=== PATIENT | male | born 1980 | race African-American/Black ===

== ENCOUNTER 2021-08-11 16:13 | Inpatient (IN) | payer SELFPAY ==
[~2021-08-11] VITALS: Ht 162.6 cm; Wt 60.2 kg
[2021-08-11] MEDS ORDERED: hydrALAZINE 20 MG/ML VIAL. IVP ONE ×2 (17:00→18:00)
--- NOTE | 2021-08-11 17:16 | RAD ---
Exam: CT head INDICATION: Headache TECHNIQUE: Sequential axial images through the head were obtained without the administration of IV co ntrast. Exposure: One or more of the following in the visualized dose reduction techniques were utilized for this examination: 1. Automated exposure control 2. Adjustment of the MA and/or KV according to patient size 3. Use of iterative of reconstructive technique Comparisons: None FINDINGS: No focal parenchymal lesion or hemorrhage is identified. There is no midline shift or sulcal effaceme nt. No acute vascular territory infarction is identified. Acosta-white distinction is preserved. The ventricular system is within normal limits without compression hydrocephalus. The basal cisterns are well maintained. The visualized portions of the paranasal sinuses and mastoid air cells are well-pneumatized. No acute fractures. IMPRESSION: No acute intracranial abnormality. Electronically signed by: Michelle Marie MD (08/11/2021 5:14 PM) RUSSELL
[2021-08-11 17:24] LABS: BASO % 1 % (0-3); EOS % 1 % (0-3); HEMATOCRIT 37.5 % (39.0-53.0); HEMOGLOBIN 11.6 g/dL (13.0-17.5); LYMPH # 0.9 x10^3/uL (1.0-4.8); LYMPH % 15 % (24-48); MEAN CORPUSCULAR HEMOGLOBIN 24 pg (25-35); MEAN CORPUSCULAR HGB CONC 31 g/dL (31-37); MEAN CORPUSCULAR VOLUME 77 fL (79-100); MONO # 0.4 x10^3/uL (0.0-1.1); MONO % 7 % (0-9); NEUT # 4.6 x10^3/uL (1.8-7.7); NEUT % 77 % (31-73); PLATELET COUNT 295 x10^3/uL (140-400); RED BLOOD COUNT 4.87 x10^6/uL (4.30-5.70); RED CELL DISTRIBUTION WIDTH 14.6 % (11.5-14.5)
--- NOTE | 2021-08-11 17:35 | PHYS DOC ---
Past Medical History Additional Past Medical Histor: CKD Past Surgical History: No Surgical History Smoking Status: Never Smoker Alcohol Use: Occasionally General Adult EDM: Chief Complaint: HEADACHE HPI: HPI: Patient is a 41 year old male who presents with headache and hypertension. Patient is also reporting some nausea. Patient states "I was told 15 years ago I need to be on blood pressure medicine I never started ". Patient denies chest pain, blurred vision, weakness. Denies taking anything to treat headache at home. Denies any daily medications or health history. Review of Systems: Review of Systems: Constitutional: Denies fever or chills. [] Eyes: Denies change in visual acuity. [] HENT: Denies nasal congestion or sore throat. [] Respiratory: Denies cough or shortness of breath. [] Cardiovascular: Denies chest pain or edema. [] GI: Denies abdominal pain, nausea, vomiting, bloody stools or diarrhea. [] : Denies dysuria. [] Musculoskeletal: Denies back pain or joint pain. [] Integument: Denies rash. [] Neurologic: Denies headache, focal weakness or sensory changes. [] Endocrine: Denies polyuria or polydipsia. [] Lymphatic: Denies swollen glands. [] Psychiatric: Denies depression or anxiety. [] Heart Score: C/O Chest Pain: No Risk Factors: Risk Factors: DM, Current or recent (<one month) smoker, HTN, HLP, family history of CAD, obesity. Risk Scores: Score 0 - 3: 2.5% MACE over next 6 weeks - Discharge Home Score 4 - 6: 20.3% MACE over next 6 weeks - Admit for Clinical Observation Score 7 - 10: 72.7% MACE over next 6 weeks - Early Invasive Strategies Current Medications: Current Medications Medications (Trade) Dose Ordered Sig/Carol Start Time Stop Time Status Last Admin Dose Admin Hydralazine HCl (Apresoline Inj) 10 mg 1X ONCE 08/11/21 17:00 08/11/21 17:01 DC 08/11/21 17:34 10 MG Allergies: Allergies: Allergies Coded Allergies Type Severity Reaction Last Updated Verified banana Allergy Intermediate 08/11/21 Yes Physical Exam: PE: Constitutional: Well developed, well nourished, no acute distress, non-toxic appearance. [] HENT: Normocephalic, atraumatic, bilateral external ears normal, oropharynx moist, no oral exudates, nose normal. [] Eyes: PERRLA, EOMI, conjunctiva normal, no discharge. [] Neck: Normal range of motion, no tenderness, supple, no stridor. [] Cardiovascular:Heart rate regular rhythm, no murmur [] Lungs & Thorax: Bilateral breath sounds clear to auscultation [] Abdomen: Bowel sounds normal, soft, no tenderness, no masses, no pulsatile masses. [] Skin: Warm, dry, no erythema, no rash. [] Back: No tenderness, no CVA tenderness. [] Extremities: No tenderness, no cyanosis, no clubbing, ROM intact, no edema. [] Neurologic: Alert and oriented X 3, normal motor function, normal sensory function, no focal deficits noted. [] Psychologic: Affect normal, judgement normal, mood normal. [] Current Patient Data: Labs: Laboratory Tests Test 08/11/21 17:07 White Blood Count 6.0 x10^3/uL (4.0-11.0) Red Blood Count 4.87 x10^6/uL (4.30-5.70) Hemoglobin 11.6 g/dL (13.0-17.5) L Hematocrit 37.5 % (39.0-53.0) L Mean Corpuscular Volume 77 fL (79-100) L Mean Corpuscular Hemoglobin 24 pg (25-35) L Mean Corpuscular Hemoglobin Concent 31 g/dL (31-37) Red Cell Distribution Width 14.6 % (11.5-14.5) H Platelet Count 295 x10^3/uL (140-400) Neutrophils (%) (Auto) 77 % (31-73) H Lymphocytes (%) (Auto) 15 % (24-48) L Monocytes (%) (Auto) 7 % (0-9) Eosinophils (%) (Auto) 1 % (0-3) Basophils (%) (Auto) 1 % (0-3) Neutrophils # (Auto) 4.6 x10^3/uL (1.8-7.7) Lymphocytes # (Auto) 0.9 x10^3/uL (1.0-4.8) L Monocytes # (Auto) 0.4 x10^3/uL (0.0-1.1) Eosinophils # (Auto) 0.0 x10^3/uL (0.0-0.7) Basophils # (Auto) 0.0 x10^3/uL (0.0-0.2) Laboratory Tests 08/11/21 17:07 Vital Signs: Vital Signs Date Time Temp Pulse Resp B/P (MAP) Pulse Ox O2 Delivery O2 Flow Rate FiO2 08/11/21 17:34 84 235/158 08/11/21 16:42 97.7 16 99 Room Air 97.7 EKG: EKG: [] Radiology/Procedures: Radiology/Procedures: []Exam: CT head INDICATION: Headache TECHNIQUE: Sequential axial images through the head were obtained without the administration of IV contrast. Exposure: One or more of the following in the visualized dose reduction techniques were utilized for this examination: 1. Automated exposure control 2. Adjustment of the MA and/or KV according to patient size 3. Use of iterative of reconstructive technique Comparisons: None FINDINGS: No focal parenchymal lesion or hemorrhage is identified. There is no midline shift or sulcal effacement. No acute vascular territory infarction is identified. Acosta-white distinction is preserved. The ventricular system is within normal limits without compression hydrocephalus. The basal cisterns are well maintained. The visualized portions of the paranasal sinuses and mastoid air cells are well- pneumatized. No acute fractures. IMPRESSION: No acute intracranial abnormality. Electronically signed by: Michelle Marie MD (08/11/2021 5:14 PM) [facility] Course & Med Decision Making: Course & Med Decision Making Pertinent Labs and Imaging studies reviewed. (See chart for details) [] 41-year-old male presents with headache and hypertension. Blood pressure on arrival was 235/158. Patient was given 10 of hydralazine to treat blood pressure. Toradol and Benadryl given to treat pain. Upon reassessment, blood pressure still elevated in the 200s. Patient given second dose of hydralazine which decreased blood pressure to 180s/100s. Patient is reporting nausea, which was treated in the ED. Patient's creatinine was 2.9. BNP 2760. Dragon Disclaimer: Dragjennifer Disclaimer: This electronic medical record was generated, in whole or in part, using a voice recognition dictation system. Departure Departure Impression: Primary Impression: Hypertensive emergency Disposition: 09 ADMITTED INPATIENT Admitting Physician: CHAPO Condition: STABLE Referrals: NO PCP (PCP) LAURA CHILDERS APRN Aug 11, 2021 17:35
[2021-08-11 18:02] LABS: CALCIUM 8.7 mg/dL (8.5-10.1); CREATININE 2.9 mg/dL (0.7-1.3); GFR 29.5; POTASSIUM 3.9 mmol/L (3.5-5.1)
[2021-08-11 18:07] LABS: ALBUMIN 3.4 g/dL (3.4-5.0); ALBUMIN/GLOBULIN RATIO 0.9 (1.0-1.7); TOTAL BILIRUBIN 0.3 mg/dL (0.2-1.0); TOTAL PROTEIN 7.1 g/dL (6.4-8.2)
[2021-08-11] MEDS ORDERED: ONDANSETRON PF 4 MG/2 ML VIAL. IVP ONE (18:15)
[2021-08-11] MEDS ORDERED: diphenhydrAMINE 50 MG/ML VIAL IVP ONE (18:15)
[2021-08-11] MEDS ORDERED: KETOROLAC 15 MG/ML VIAL. IVP ONE (18:15)
[2021-08-11] MEDS ORDERED: LABETALOL 20 MG/4 ML DISP.SYRIN. IVP ONE (18:30)
[2021-08-11] MEDS ORDERED: PROCHLORPERAZINE 10 MG/2 ML VIAL. IV ONE (19:00)
--- NOTE | 2021-08-11 19:02 | RAD ---
EXAM: CHEST 1 VIEW History: Headache COMPARISON: None available. TECHNIQUE: Single portable radiograph of the chest FINDINGS: Mild cardiomegaly. The lungs are clear bilaterally. The costophrenic sulci are clear and w ell demarcated. IMPRESSION: No radiographic evidence of an acute cardiopulmonary process. Electronically signed by: Andrzej Aguila MD (08/11/2021 7:00 PM) [id number]
[2021-08-11] MEDS ORDERED: LACTULOSE 20 GM/30 ML SOLUTION. PO PRN (19:45)
[2021-08-11] MEDS ORDERED: MAG HYDROX/ALUMINUM HYD/SIMETH 30 ML ORAL.SUSP PO PRN (19:45)
[2021-08-11] MEDS ORDERED: ONDANSETRON PF 4 MG/2 ML VIAL. IVP PRN (19:45)
[2021-08-11] MEDS ORDERED: CALCIUM CARBONATE 500 MG TAB.CHEW PO PRN (19:45)
[2021-08-11] MEDS ORDERED: ZOLPIDEM 5 MG TABLET. PO PRN (19:45)
[2021-08-11] MEDS ORDERED: HYDROcodone/APAP 5/325MG 1 TAB TABLET PO PRN (19:45)
[2021-08-11] MEDS ORDERED: MORPHINE SULFATE 2 MG/ML INJ. IV PRN (19:45)
[2021-08-11] MEDS ORDERED: ACETAMINOPHEN 325 MG TABLET. PO PRN (19:45)
[2021-08-11] MEDS ORDERED: BISACODYL 10 MG SUPP.RECT. PR PRN (19:45)
[2021-08-11] MEDS ORDERED: MAGNESIUM HYDROXIDE 2,400 MG/30 ML ORAL.SUSP. PO PRN (19:45)
[2021-08-11] MEDS ORDERED: oxyCODONE IR 5 MG TABLET PO PRN (19:45)
--- NOTE | 2021-08-11 20:53 | RAD ---
EXAM: RENAL ULTRASOUND CLINICAL HISTORY: Renal failure COMPARISON: None available. TECHNIQUE: Ultrasound examination of the bilateral kidneys and urinary bladder was performed. Findings/ impression: The right kidney is not visualized. The left kidney measures 13.5 x 4.3 cm unsure if this is [place] or transplant kidney. Patient is a poor historian. Urinary bladder is mildly distended. Electronically signed by: Andrzej Aguila MD (08/11/2021 8:51 PM) [id number]
[2021-08-11 21:30] VITALS: BP 146/87
[2021-08-11 21:45] VITALS: BP 158/92
[2021-08-11] MEDS: SENNOSIDES/DOCUSATE 8.6/50MG TABLET. PO SCH (22:12)
[2021-08-11] MEDS: HEPARIN for SUB-Q USE 5,000 UNIT/ML VIAL. SQ SCH (22:13)
[2021-08-11 23:00] VITALS: BP 159/96
--- NOTE | 2021-08-11 23:18 | PDOC1 ---
History and Physical Date of Admission Date of Admission 08/11/2021 Identification/Chief Complaint Chief Complaint My head hurcortes Source Source: Chart review, Patient History of Present Illness History of Present Illness Patient is a 41-year-old gentleman with past medical history of renal disease. He has been aware of renal issues for 14 years now. No diagnosis has been given to him but he will has also had essential hypertension uncontrolled for quite some time. Patient came today due to severe headache that he presented earlier in the day. He has not been taking any blood pressure medications and he was found to have hypertensive urgency. The patient denied any strokelike symptoms no chest pressure no loss of consciousness no slurred speech no focal neurological deficits were appreciated. Serendipitously the patient was tested for Covid and tested positive. The patient denies any sick contacts the patient has not taken the vaccine and is currently asymptomatic. He denies any chest di scomfort no cough sputum production no dyspnea. The patient denies abdominal discomfort no nausea vomiting or diarrhea. He den ies any urinary symptoms no lower extremity edema no paroxysmal nocturnal dyspnea and there is no evidence of volume overload at the present time. Patient is being admitted at the request of the ER for blood pressure management and evaluation of renal disease which seems to be chronic in nature. The patient denies any recent history of NSAID abuse no contrast no other nephrotoxic drugs reported and no herbal supplements either. No changes in his urinary output has been reported either. All of his concerns were addressed to the best of my abilities plan of care explained in detail Past Medical History Cardiovascular: HTN Renal/: Chronic renal insuff Past Surgical History Past Surgical History: No pertinent history Family History Family History: No Significant Social History Smoke: No ALCOHOL: none Drugs: None Current Problem List Problem List Problems Medical Problems: (1) Hypertensive emergency Status: Acute Current Medications Current Medications Current Medications Medications (Trade) Dose Ordered Sig/Carol Start Time Stop Time Status Last Admin Dose Admin Acetaminophen (Tylenol) 650 mg PRN Q6HRS PRN 08/11/21 19:45 Acetaminophen/ Hydrocodone Bitart (Lortab 5/325) 1 tab PRN Q4HRS PRN 08/11/21 19:45 Al Hydroxide/Mg Hydroxide (Mylanta Plus Xs) 30 ml PRN Q3HRS PRN 08/11/21 19:45 Bisacodyl (Dulcolax Supp) 10 mg PRN DAILY PRN 08/11/21 19:45 Calcium Carbonate/ Glycine (Tums) 500 mg PRN Q3HRS PRN 08/11/21 19:45 Diphenhydramine HCl (Benadryl) 50 mg 1X ONCE 08/11/21 18:15 08/11/21 18:21 DC 08/11/21 19:06 50 MG Heparin Sodium (Porcine) (Heparin Sodium) 5,000 unit Q8HRS 08/11/21 20:00 08/11/21 22:13 5,000 UNIT Hydralazine HCl (Apresoline Inj) 10 mg 1X ONCE 08/11/21 18:00 08/11/21 18:12 DC 08/11/21 18:04 10 MG Ketorolac Tromethamine (Toradol 15mg Vial) 15 mg 1X ONCE 08/11/21 18:15 08/11/21 18:21 DC 08/11/21 19:07 15 MG Labetalol HCl (Normodyne Iv Push) 20 mg 1X ONCE 08/11/21 18:30 08/11/21 18:31 DC Lactulose (Lactulose) 20 gm PRN Q12HR PRN 08/11/21 19:45 Magnesium Hydroxide (Milk Of Magnesia) 2,400 mg PRN Q12HR PRN 08/11/21 19:45 Morphine Sulfate (Morphine Sulfate) 2 mg PRN Q1HR PRN 08/11/21 19:45 Nicardipine HCl 50 mg/Sodium Chloride 250 ml @ 25 mls/hr CONT PRN 08/11/21 19:45 Ondansetron HCl (Zofran) 4 mg PRN Q6HRS PRN 08/11/21 19:45 Oxycodone HCl (Roxicodone) 5 mg PRN Q3HRS PRN 08/11/21 19:45 Prochlorperazine Edisylate (Compazine) 10 mg 1X ONCE 08/11/21 19:00 08/11/21 19:06 DC 08/11/21 19:10 10 MG Senna/Docusate Sodium (Senna Plus) 1 tab BID 08/11/21 21:00 08/11/21 22:12 1 TAB Zolpidem Tartrate (Ambien) 5 mg PRN QHS PRN 08/11/21 19:45 Allergies Allergies Allergies Coded Allergies Type Severity Reaction Last Updated Verified banana Allergy Intermediate 08/11/21 Yes ROS Review of System CONSTITUTIONAL: No fever or chills EYES: No recent changes SKIN: No rash or itching CARDIOVASCULAR: No chest pain, syncope, palpitations, or edema RESPIRATORY: No SOB or cough GASTROINTESTINAL: No nausea, vomiting or abdominal pain NEUROLOGICAL: No headaches or weakness ENDOCRINE: No cold or heat intolerance GENITOURINARY: No urgency or frequency of urination MUSCULOSKELETAL: No back pain or joint pain LYMPHATICS: No enlarged lymph nodes PSYCHIATRIC: No anxiety or depression Physical Exam Physical Exam GEN.: No apparent distress. Alert and oriented. HEENT: Head is normocephalic, atraumatic NECK: Supple. LUNGS: Clear to auscultation. HEART: RRR, S1, S2 present. Peripheral pulses intact ABDOMEN: Soft, nontender. Positive bowel sounds. EXTREMITIES: Without any cyanosis. NEUROLOGIC: Normal speech, normal tone PSYCHIATRIC: Normal affect, normal mood. SKIN: No ulcerations Vitals Vitals Vital Signs Date Time Temp Pulse Resp B/P (MAP) Pulse Ox O2 Delivery O2 Flow Rate FiO2 08/11/21 23:00 99.0 107 18 159/96 (117) 100 Room Air 99.0 Labs Labs Laboratory Tests Test 08/11/21 17:07 08/11/21 20:22 White Blood Count 6.0 x10^3/uL (4.0-11.0) Red Blood Count 4.87 x10^6/uL (4.30-5.70) Hemoglobin 11.6 g/dL (13.0-17.5) Hematocrit 37.5 % (39.0-53.0) Mean Corpuscular Volume 77 fL (79-100) Mean Corpuscular Hemoglobin 24 pg (25-35) Mean Corpuscular Hemoglobin Concent 31 g/dL (31-37) Red Cell Distribution Width 14.6 % (11.5-14.5) Platelet Count 295 x10^3/uL (140-400) Neutrophils (%) (Auto) 77 % (31-73) Lymphocytes (%) (Auto) 15 % (24-48) Monocytes (%) (Auto) 7 % (0-9) Eosinophils (%) (Auto) 1 % (0-3) Basophils (%) (Auto) 1 % (0-3) Neutrophils # (Auto) 4.6 x10^3/uL (1.8-7.7) Lymphocytes # (Auto) 0.9 x10^3/uL (1.0-4.8) Monocytes # (Auto) 0.4 x10^3/uL (0.0-1.1) Eosinophils # (Auto) 0.0 x10^3/uL (0.0-0.7) Basophils # (Auto) 0.0 x10^3/uL (0.0-0.2) Sodium Level 140 mmol/L (136-145) Potassium Level 3.9 mmol/L (3.5-5.1) Chloride Level 106 mmol/L (98-107) Carbon Dioxide Level 24 mmol/L (21-32) Anion Gap 10 (6-14) Blood Urea Nitrogen 25 mg/dL (8-26) Creatinine 2.9 mg/dL (0.7-1.3) Estimated GFR (Cockcroft-Gault) 29.5 BUN/Creatinine Ratio 9 (6-20) Glucose Level 89 mg/dL (70-99) Calcium Level 8.7 mg/dL (8.5-10.1) Total Bilirubin 0.3 mg/dL (0.2-1.0) Aspartate Amino Transf (AST/SGOT) 31 U/L (15-37) Alanine Aminotransferase (ALT/SGPT) 56 U/L (16-63) Alkaline Phosphatase 72 U/L (46-116) Troponin I High Sensitivity 60 ng/L (4-75) BF-Ape-M-Type Natriuretic Peptide 2760 pg/mL (0-124) Total Protein 7.1 g/dL (6.4-8.2) Albumin 3.4 g/dL (3.4-5.0) Albumin/Globulin Ratio 0.9 (1.0-1.7) SARS-CoV-2 Antigen (Rapid) Positive (NEGATIVE) Laboratory Tests Test 08/11/21 17:07 08/11/21 20:22 White Blood Count 6.0 x10^3/uL (4.0-11.0) Red Blood Count 4.87 x10^6/uL (4.30-5.70) Hemoglobin 11.6 g/dL (13.0-17.5) Hematocrit 37.5 % (39.0-53.0) Mean Corpuscular Volume 77 fL (79-100) Mean Corpuscular Hemoglobin 24 pg (25-35) Mean Corpuscular Hemoglobin Concent 31 g/dL (31-37) Red Cell Distribution Width 14.6 % (11.5-14.5) Platelet Count 295 x10^3/uL (140-400) Neutrophils (%) (Auto) 77 % (31-73) Lymphocytes (%) (Auto) 15 % (24-48) Monocytes (%) (Auto) 7 % (0-9) Eosinophils (%) (Auto) 1 % (0-3) Basophils (%) (Auto) 1 % (0-3) Neutrophils # (Auto) 4.6 x10^3/uL (1.8-7.7) Lymphocytes # (Auto) 0.9 x10^3/uL (1.0-4.8) Monocytes # (Auto) 0.4 x10^3/uL (0.0-1.1) Eosinophils # (Auto) 0.0 x10^3/uL (0.0-0.7) Basophils # (Auto) 0.0 x10^3/uL (0.0-0.2) Sodium Level 140 mmol/L (136-145) Potassium Level 3.9 mmol/L (3.5-5.1) Chloride Level 106 mmol/L (98-107) Carbon Dioxide Level 24 mmol/L (21-32) Anion Gap 10 (6-14) Blood Urea Nitrogen 25 mg/dL (8-26) Creatinine 2.9 mg/dL (0.7-1.3) Estimated GFR (Cockcroft-Gault) 29.5 BUN/Creatinine Ratio 9 (6-20) Glucose Level 89 mg/dL (70-99) Calcium Level 8.7 mg/dL (8.5-10.1) Total Bilirubin 0.3 mg/dL (0.2-1.0) Aspartate Amino Transf (AST/SGOT) 31 U/L (15-37) Alanine Aminotransferase (ALT/SGPT) 56 U/L (16-63) Alkaline Phosphatase 72 U/L (46-116) Troponin I High Sensitivity 60 ng/L (4-75) EE-Moq-B-Type Natriuretic Peptide 2760 pg/mL (0-124) Total Protein 7.1 g/dL (6.4-8.2) Albumin 3.4 g/dL (3.4-5.0) Albumin/Globulin Ratio 0.9 (1.0-1.7) SARS-CoV-2 Antigen (Rapid) Positive (NEGATIVE) VTE Prophylaxis Ordered VTE Prophylaxis Devices: Yes VTE Pharmacological Prophylaxi: Yes Assessment/Plan Assessment/Plan Hypertensive urgency COVID-19 positive status asymptomatic Chronic renal insufficiency most likely secondary to uncontrolled hypertension Microcytic anemia etiology undetermined. Patient denies black tarry stools no family history of colon cancer Plan Renal insufficiency work-up including ultrasound of the kidneys Cardene drip Follow urinary output Repeat labs in the a.m. Supportive measures for COVID-19 Isolation appropriately DVT prophylaxis with heparin Further recommendations based on the clinical course Justifications for Admission Other Justification Hypertensive urgency EZIO APPLE MD Aug 11, 2021 23:18
[2021-08-12] VITALS (10 sets, daily range): BP systolic 157–208; BP diastolic 94–125
[2021-08-12] MEDS: ASCORBIC ACID 500 MG TABLET PO SCH ×2 (00:36→05:53)
--- NOTE | 2021-08-12 01:01 | EKG ---
[facility] [address] [place] [address] Test Date: 2021-08-11 Test Time: 16:44:09 Pat Name: JENA BOWLING Department: Room: [facility] Gender: M Spa Manager/Esthetician: : 1980 Requested By: LAURA CHILDERS Order Number: [id number] Reading MD: Renny Kam MD Measurements Intervals [place] Rate: 76 P: 50 MS: 178 QRS: 47 QRSD: 82 T: 10 QT: 354 QTc: 402 Interpretive Statements SINUS RHYTHM Electronically Signed On 08-12-2021 13:47:09 NECKTIE STITCHER by Renny Kam MD
[2021-08-12 03:59] LABS: BASO % 1 % (0-3); EOS % 0 % (0-3); HEMATOCRIT 32.5 % (39.0-53.0); HEMOGLOBIN 10.2 g/dL (13.0-17.5); LYMPH # 1.2 x10^3/uL (1.0-4.8); LYMPH % 27 % (24-48); MEAN CORPUSCULAR HEMOGLOBIN 24 pg (25-35); MEAN CORPUSCULAR HGB CONC 32 g/dL (31-37); MEAN CORPUSCULAR VOLUME 77 fL (79-100); MONO # 0.5 x10^3/uL (0.0-1.1); MONO % 11 % (0-9); NEUT # 2.8 x10^3/uL (1.8-7.7); NEUT % 61 % (31-73); PLATELET COUNT 290 x10^3/uL (140-400); RED BLOOD COUNT 4.24 x10^6/uL (4.30-5.70); RED CELL DISTRIBUTION WIDTH 14.5 % (11.5-14.5); WHITE BLOOD COUNT 4.6 x10^3/uL (4.0-11.0)
[2021-08-12] MEDS: HEPARIN for SUB-Q USE 5,000 UNIT/ML VIAL. SQ SCH ×3 (05:53→22:18)
[2021-08-12] MEDS: SENNOSIDES/DOCUSATE 8.6/50MG TABLET. PO SCH ×3 (09:00→21:00)
[2021-08-12] MEDS: CHOLECALCIFEROL (VITAMIN D3) 1,000 UNIT TABLET PO SCH (09:03)
[2021-08-12] MEDS: ZINC SULFATE 220 MG CAPSULE. PO SCH (09:03)
[2021-08-12] MEDS: FAMOTIDINE 20 MG TABLET. PO SCH (09:04)
--- NOTE | 2021-08-12 12:51 | PDOC ---
[employer] PROGRESS NOTE Date of Service DOS: DATE: 08/12/21 TIME: 12:47 Chief Complaint Chief Complaint Hypertensive urgency COVID-19 positive status asymptomatic acute renal failure, [employer]IOR [employer]NAL [employer]PLANT, not taking his meds Chronic renal insufficiency, uncontrolled hypertension, not taking meds Microcytic anemia COVID 19 pos, vitals stable, on RA Follow urinary output Repeat labs in the a.m. Supportive measures for COVID-19 Isolation appropriately DVT prophylaxis with heparin Further recommendations based on the clinical course Justifications for Admission History of Present Illness History of Present Illness his headache is gone, he feels well he feels at his baseline I asked about renal function, he reports prior renal transplant, but is not taking his meds, he does recall the medicine name Cellcept, no recent physician visit Vitals/I&O Vitals/I&O: Vital Signs Date Time Temp Pulse Resp B/P (MAP) Pulse Ox O2 Delivery O2 Flow Rate FiO2 08/12/21 11:00 98.1 75 18 179/110 (133) 98 Room Air 98.1 I & O 08/11/21 08/11/21 08/12/21 15:00 23:00 07:00 Intake Total 200 ml Balance 200 ml Physical Exam General: Alert, Oriented X3, No acute distress Heart: Regular rate, Normal S1, Normal S2 Lungs: Wheezing Abdomen: Normal bowel sounds Extremities: No clubbing Skin: No rashes, No breakdown Labs Labs: Laboratory Tests Test 08/11/21 17:07 08/11/21 20:22 08/12/21 03:30 White Blood Count 6.0 x10^3/uL (4.0-11.0) 4.6 x10^3/uL (4.0-11.0) Red Blood Count 4.87 x10^6/uL (4.30-5.70) 4.24 x10^6/uL (4.30-5.70) Hemoglobin 11.6 g/dL (13.0-17.5) 10.2 g/dL (13.0-17.5) Hematocrit 37.5 % (39.0-53.0) 32.5 % (39.0-53.0) Mean Corpuscular Volume 77 fL (79-100) 77 fL (79-100) Mean Corpuscular Hemoglobin 24 pg (25-35) 24 pg (25-35) Mean Corpuscular Hemoglobin Concent 31 g/dL (31-37) 32 g/dL (31-37) Red Cell Distribution Width 14.6 % (11.5-14.5) 14.5 % (11.5-14.5) Platelet Count 295 x10^3/uL (140-400) 290 x10^3/uL (140-400) Neutrophils (%) (Auto) 77 % (31-73) 61 % (31-73) Lymphocytes (%) (Auto) 15 % (24-48) 27 % (24-48) Monocytes (%) (Auto) 7 % (0-9) 11 % (0-9) Eosinophils (%) (Auto) 1 % (0-3) 0 % (0-3) Basophils (%) (Auto) 1 % (0-3) 1 % (0-3) Neutrophils # (Auto) 4.6 x10^3/uL (1.8-7.7) 2.8 x10^3/uL (1.8-7.7) Lymphocytes # (Auto) 0.9 x10^3/uL (1.0-4.8) 1.2 x10^3/uL (1.0-4.8) Monocytes # (Auto) 0.4 x10^3/uL (0.0-1.1) 0.5 x10^3/uL (0.0-1.1) Eosinophils # (Auto) 0.0 x10^3/uL (0.0-0.7) 0.0 x10^3/uL (0.0-0.7) Basophils # (Auto) 0.0 x10^3/uL (0.0-0.2) 0.0 x10^3/uL (0.0-0.2) Sodium Level 140 mmol/L (136-145) Potassium Level 3.9 mmol/L (3.5-5.1) Chloride Level 106 mmol/L (98-107) Carbon Dioxide Level 24 mmol/L (21-32) Anion Gap 10 (6-14) Blood Urea Nitrogen 25 mg/dL (8-26) Creatinine 2.9 mg/dL (0.7-1.3) Estimated GFR (Cockcroft-Gault) 29.5 BUN/Creatinine Ratio 9 (6-20) Glucose Level 89 mg/dL (70-99) Calcium Level 8.7 mg/dL (8.5-10.1) Total Bilirubin 0.3 mg/dL (0.2-1.0) Aspartate Amino Transf (AST/SGOT) 31 U/L (15-37) Alanine Aminotransferase (ALT/SGPT) 56 U/L (16-63) Alkaline Phosphatase 72 U/L (46-116) Troponin I High Sensitivity 60 ng/L (4-75) IG-Mzv-G-Type Natriuretic Peptide 2760 pg/mL (0-124) Total Protein 7.1 g/dL (6.4-8.2) Albumin 3.4 g/dL (3.4-5.0) Albumin/Globulin Ratio 0.9 (1.0-1.7) SARS-CoV-2 Antigen (Rapid) Positive (NEGATIVE) Review of Systems Review of Systems: no n.v.d no fever, no headache Assessment and Plan Assessmemt and Plan Problems Medical Problems: (1) Hypertensive emergency Status: Acute Comment Review of Relevant I have reviewed the following items maddi (where applicable) has been applied. Medications: Current Medications Medications (Trade) Dose Ordered Sig/Carol Route PRN Reason Start Time Stop Time Status Last Admin Dose Admin Hydralazine HCl (Apresoline Inj) 10 mg 1X ONCE IVP 08/11/21 17:00 08/11/21 17:01 DC 08/11/21 17:34 Hydralazine HCl (Apresoline Inj) 10 mg 1X ONCE IVP 08/11/21 18:00 08/11/21 18:12 DC 08/11/21 18:04 Ondansetron HCl (Zofran) 4 mg 1X ONCE IVP 08/11/21 18:15 08/11/21 18:16 DC 08/11/21 18:12 Ketorolac Tromethamine (Toradol 15mg Vial) 15 mg 1X ONCE IVP 08/11/21 18:15 08/11/21 18:21 DC 08/11/21 19:07 Diphenhydramine HCl (Benadryl) 50 mg 1X ONCE IVP 08/11/21 18:15 08/11/21 18:21 DC 08/11/21 19:06 Prochlorperazine Edisylate (Compazine) 10 mg 1X ONCE IV 08/11/21 19:00 08/11/21 19:06 DC 08/11/21 19:10 Senna/Docusate Sodium (Senna Plus) 1 tab BID PO 08/11/21 21:00 08/12/21 09:03 Heparin Sodium (Porcine) (Heparin Sodium) 5,000 unit Q8HRS SQ 08/11/21 20:00 08/12/21 05:53 Ascorbic Acid (Vitamin C) 500 mg Q6HRS PO 08/12/21 00:00 08/12/21 05:53 Famotidine (Pepcid) 20 mg DAILY PO 08/12/21 09:00 08/12/21 09:04 Vitamin D (Vitamin D3) 2,000 unit DAILY PO 08/12/21 09:00 08/12/21 09:03 Zinc Sulfate (Orazinc) 220 mg DAILY PO 08/12/21 09:00 08/12/21 09:03 Justifications for Admission Other Justification Hypertensive urgency MARIOLA CURRAN MD Aug 12, 2021 12:51
[2021-08-12] MEDS ORDERED: METOPROLOL TART IMMED RELEASE 25 MG TABLET. PO SCH (13:00)
[2021-08-12] MEDS: hydrALAZINE 20 MG/ML VIAL. IVP PRN (17:32)
[2021-08-12] MEDS: METOPROLOL TART IMMED RELEASE 50 MG TABLET. PO SCH (22:17)
[2021-08-13 02:43] VITALS: BP 156/96
[2021-08-13] MEDS: HEPARIN for SUB-Q USE 5,000 UNIT/ML VIAL. SQ SCH ×3 (06:31→22:26)
[2021-08-13 07:00] VITALS: BP 175/105
[2021-08-13] MEDS: CHOLECALCIFEROL (VITAMIN D3) 1,000 UNIT TABLET PO SCH (08:34)
[2021-08-13] MEDS: SENNOSIDES/DOCUSATE 8.6/50MG TABLET. PO SCH ×2 (08:35→21:00)
[2021-08-13] MEDS: ZINC SULFATE 220 MG CAPSULE. PO SCH (08:35)
[2021-08-13] MEDS: METOPROLOL TART IMMED RELEASE 50 MG TABLET. PO SCH ×2 (08:36→22:24)
[2021-08-13] MEDS: FAMOTIDINE 20 MG TABLET. PO SCH (08:36)
[2021-08-13] MEDS: ASCORBIC ACID 500 MG TABLET PO SCH (08:37)
[2021-08-13 11:00] VITALS: BP 159/101
[2021-08-13 11:01] LABS: MAGNESIUM 1.8 mg/dL (1.8-2.4); PHOSPHORUS 6.2 mg/dL (2.6-4.7)
--- NOTE | 2021-08-13 11:26 | PDOC2 ---
CONSULT Date of Consult Date of Consult DATE: 08/13/21 TIME: 11:05 Reason for Consult Reason for Consult: LIBBY, Renal Transplant Source Source: Chart review, Patient History of Present Illness Reason for Visit: Patient is a 41-year-old AA male admitte mundo 08/11 with c/o severe headache that he presented earlier in the day. He reports he got a Kidney transplant from a donor when he was 25 years old. He has been off immunosuppression (his own decision) sine at least 13 years and not seen a provider for approx 12 + years He doesnt know the cause of Renal failure . He has not been taking any meds for past 12-14 years . He doesnt check his BP at home. Denies diagnosis of DM or CAD. Denies any N/V/D. No CP or SOB currently. Denies any urinary complaints .No neurological symptoms at presentation Denies Kidney stones. Denies use of NSAID's or OTC health supplements. Denies Illicit drug use He was found to have hypertensive urgency at presentation. He was tested for Covid and tested positive. He denies any sick contacts,he has not taken the vaccine Past Medical History Cardiovascular: HTN Renal/: Chronic renal insuff Past Surgical History Past Surgical History: No pertinent history Family History Family History: No Significant Social History No ALCOHOL: none Drugs: None Current Problem List Problem List Problems Medical Problems: (1) Hypertensive emergency Status: Acute Current Medications Current Medications Current Medications Hydralazine HCl (Apresoline Inj) 10 mg 1X ONCE IVP Last administered on 08/11/21at 17:34; Start 08/11/21 at 17:00; Stop 08/11/21 at 17:01; Status DC Hydralazine HCl (Apresoline Inj) 10 mg 1X ONCE IVP Last administered on 08/11/21at 18:04; Start 08/11/21 at 18:00; Stop 08/11/21 at 18:12; Status DC Ondansetron HCl (Zofran) 4 mg 1X ONCE IVP Last administered on 08/11/21at 18:12; Start 08/11/21 at 18:15; Stop 08/11/21 at 18:16; Status DC Ketorolac Tromethamine (Toradol 15mg Vial) 15 mg 1X ONCE IVP Last administered on 08/11/21at 19:07; Start 08/11/21 at 18:15; Stop 08/11/21 at 18:21; Status DC Diphenhydramine HCl (Benadryl) 50 mg 1X ONCE IVP Last administered on 08/11/21at 19:06; Start 08/11/21 at 18:15; Stop 08/11/21 at 18:21; Status DC Labetalol HCl (Normodyne Iv Push) 20 mg 1X ONCE IVP ; Start 08/11/21 at 18:30; Stop 08/11/21 at 18:31; Status DC Prochlorperazine Edisylate (Compazine) 10 mg 1X ONCE IV Last administered on 08/11/21at 19:10; Start 08/11/21 at 19:00; Stop 08/11/21 at 19:06; Status DC Nicardipine HCl 50 mg/Sodium Chloride 250 ml @ 25 mls/hr CONT PRN IV PER PROTOCOL; Start 08/11/21 at 19:45; Stop 08/12/21 at 12:50; Status DC Ondansetron HCl (Zofran) 4 mg PRN Q6HRS PRN IVP NAUSEA/VOMITING; Start 08/11/21 at 19:45 Al Hydroxide/Mg Hydroxide (Mylanta Plus Xs) 30 ml PRN Q3HRS PRN PO HEARTBURN / GAS; Start 08/11/21 at 19:45 Calcium Carbonate/ Glycine (Tums) 500 mg PRN Q3HRS PRN PO UPSET STOMACH; Start 08/11/21 at 19:45 Zolpidem Tartrate (Ambien) 5 mg PRN QHS PRN PO INSOMNIA, MAY REPEAT IN 1HR; Start 08/11/21 at 19:45 Oxycodone HCl (Roxicodone) 5 mg PRN Q3HRS PRN PO BREAKTHROUGH PAIN Last administered on 08/12/21at 22:20; Start 08/11/21 at 19:45 Morphine Sulfate (Morphine Sulfate) 2 mg PRN Q1HR PRN IV PAIN-SEE COMMENTS; Start 08/11/21 at 19:45 Acetaminophen/ Hydrocodone Bitart (Lortab 5/325) 1 tab PRN Q4HRS PRN PO MOD TO SEVERE PAIN Last administered on 08/12/21at 18:33; Start 08/11/21 at 19:45 Acetaminophen (Tylenol) 650 mg PRN Q6HRS PRN PO Headaches, Temp > 101.5F; Start 08/11/21 at 19:45 Senna/Docusate Sodium (Senna Plus) 1 tab BID PO Last administered on 08/13/21at 08:35; Start 08/11/21 at 21:00 Magnesium Hydroxide (Milk Of Magnesia) 2,400 mg PRN Q12HR PRN PO CONSTIPATION; Start 08/11/21 at 19:45 Lactulose (Lactulose) 20 gm PRN Q12HR PRN PO CONSTIPATION; Start 08/11/21 at 19:45 Bisacodyl (Dulcolax Supp) 10 mg PRN DAILY PRN [place] CONSTIPATION; Start 08/11/21 at 19:45 Heparin Sodium (Porcine) (Heparin Sodium) 5,000 unit Q8HRS SQ Last administered on 08/13/21at 06:31; Start 08/11/21 at 20:00 Ascorbic Acid (Vitamin C) 500 mg Q6HRS PO Last administered on 08/12/21at 05:53; Start 08/12/21 at 00:00; Stop 08/12/21 at 12:42; Status DC Famotidine (Pepcid) 20 mg DAILY PO Last administered on 08/13/21at 08:36; Start 08/12/21 at 09:00 Vitamin D (Vitamin D3) 2,000 unit DAILY PO Last administered on 08/13/21at 08:34; Start 08/12/21 at 09:00 Zinc Sulfate (Orazinc) 220 mg DAILY PO Last administered on 08/13/21at 08:35; Start 08/12/21 at 09:00 Ascorbic Acid (Vitamin C) 500 mg DAILY PO Last administered on 08/13/21at 08:37; Start 08/13/21 at 09:00 Amlodipine Besylate (Norvasc) 10 mg 1X ONCE PO Last administered on 08/12/21at 13:08; Start 08/12/21 at 13:00; Stop 08/12/21 at 13:01; Status DC Amlodipine Besylate (Norvasc) 10 mg DAILY PO Last administered on 08/13/21at 08:36; Start 08/13/21 at 09:00 Enoxaparin Sodium (Lovenox Per Pharmacy Prophylaxis Dosing) 1 each PRN DAILY PRN MC SEE COMMENTS; Start 08/12/21 at 13:00; Status UNV Metoprolol Tartrate (Lopressor) 25 mg BID PO Last administered on 08/12/21at 13:10; Start 08/12/21 at 13:00; Stop 08/12/21 at 17:17; Status DC Metoprolol Tartrate (Lopressor) 50 mg BID PO Last administered on 08/13/21at 08:36; Start 08/12/21 at 21:00 Hydralazine HCl (Apresoline Inj) 10 mg PRN Q4HRS PRN IVP ELEVATED BP, SEE COMMENTS Last administered on 08/12/21at 17:32; Start 08/12/21 at 17:15 Active Scripts Active Reported No Known Medications Prior To Admisstion (Info) Each 1 Each MC 1X Allergies Allergies: Coded Allergies: banana (Verified Allergy, Intermediate, 08/11/21) ROS Review of System As per HPI, rest of the ROS is negative Physical Exam Physical Exam GEN.: No apparent distress. Alert and oriented. HEENT: Head is normocephalic, atraumatic, OM moist NECK: Supple. LUNGS: Clear to auscultation. HEART: RRR, S1, S2 present. ABDOMEN: Soft, nontender. Positive bowel sounds. No Transplant tenderness EXTREMITIES: Without any cyanosis.No edema NEUROLOGIC: Normal speech, normal tone,Grossly normal PSYCHIATRIC: Normal affect, normal mood. SKIN: No rash No Flank or CVA tenderness, No Nelson Vital Signs Vital Signs Date Time Temp Pulse Resp B/P (MAP) Pulse Ox O2 Delivery O2 Flow Rate FiO2 08/13/21 08:36 74 156/96 08/13/21 07:00 98.3 16 94 Room Air 98.3 Assessment & Plan LIBBY Vs CKD- history of Renal Tx - have not been taking Immunosuppressive - quit 13 years back, dosent follow with health care provider Labs on 08/11 elevated, No labs done since ; Ordered labs today pending. Renal US The left kidney measures 13.5 x 4.3 cm unsure if this is [place] kidney or transplant kidney. E-lytes stable, Clinically stable. Monitor labs, strict I/O, avoid nephrotoxins, supportive care Hx of Renal Transplant- donor at the age of 25 years. 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 He quit taking immunosuppressives and havent seen a provider since 12-13 years CKD - Baseline unknown Hypertensive urgency- Primary managing , clinically appears euvolemic COVID-19 positive status asymptomatic Labs Labs Laboratory Tests Test 08/11/21 17:07 08/11/21 20:22 08/12/21 03:30 White Blood Count 6.0 x10^3/uL (4.0-11.0) 4.6 x10^3/uL (4.0-11.0) Red Blood Count 4.87 x10^6/uL (4.30-5.70) 4.24 x10^6/uL (4.30-5.70) Hemoglobin 11.6 g/dL (13.0-17.5) 10.2 g/dL (13.0-17.5) Hematocrit 37.5 % (39.0-53.0) 32.5 % (39.0-53.0) Mean Corpuscular Volume 77 fL (79-100) 77 fL (79-100) Mean Corpuscular Hemoglobin 24 pg (25-35) 24 pg (25-35) Mean Corpuscular Hemoglobin Concent 31 g/dL (31-37) 32 g/dL (31-37) Red Cell Distribution Width 14.6 % (11.5-14.5) 14.5 % (11.5-14.5) Platelet Count 295 x10^3/uL (140-400) 290 x10^3/uL (140-400) Neutrophils (%) (Auto) 77 % (31-73) 61 % (31-73) Lymphocytes (%) (Auto) 15 % (24-48) 27 % (24-48) Monocytes (%) (Auto) 7 % (0-9) 11 % (0-9) Eosinophils (%) (Auto) 1 % (0-3) 0 % (0-3) Basophils (%) (Auto) 1 % (0-3) 1 % (0-3) Neutrophils # (Auto) 4.6 x10^3/uL (1.8-7.7) 2.8 x10^3/uL (1.8-7.7) Lymphocytes # (Auto) 0.9 x10^3/uL (1.0-4.8) 1.2 x10^3/uL (1.0-4.8) Monocytes # (Auto) 0.4 x10^3/uL (0.0-1.1) 0.5 x10^3/uL (0.0-1.1) Eosinophils # (Auto) 0.0 x10^3/uL (0.0-0.7) 0.0 x10^3/uL (0.0-0.7) Basophils # (Auto) 0.0 x10^3/uL (0.0-0.2) 0.0 x10^3/uL (0.0-0.2) Sodium Level 140 mmol/L (136-145) Potassium Level 3.9 mmol/L (3.5-5.1) Chloride Level 106 mmol/L (98-107) Carbon Dioxide Level 24 mmol/L (21-32) Anion Gap 10 (6-14) Blood Urea Nitrogen 25 mg/dL (8-26) Creatinine 2.9 mg/dL (0.7-1.3) Estimated GFR (Cockcroft-Gault) 29.5 BUN/Creatinine Ratio 9 (6-20) Glucose Level 89 mg/dL (70-99) Calcium Level 8.7 mg/dL (8.5-10.1) Total Bilirubin 0.3 mg/dL (0.2-1.0) Aspartate Amino Transf (AST/SGOT) 31 U/L (15-37) Alanine Aminotransferase (ALT/SGPT) 56 U/L (16-63) Alkaline Phosphatase 72 U/L (46-116) Troponin I High Sensitivity 60 ng/L (4-75) [id number]-Pjh-S-Type Natriuretic Peptide 2760 pg/mL (0-124) Total Protein 7.1 g/dL (6.4-8.2) Albumin 3.4 g/dL (3.4-5.0) Albumin/Globulin Ratio 0.9 (1.0-1.7) SARS-CoV-2 Antigen (Rapid) Positive (NEGATIVE) Review All relevant outside records, renal labs, imaging studies, telemetry/EKG's were reviewed. Images Images EXAM: RENAL ULTRASOUND CLINICAL HISTORY: Renal failure COMPARISON: None available. TECHNIQUE: Ultrasound examination of the bilateral kidneys and urinary bladder was performed. Findings/ impression: The right kidney is not visualized. The left kidney measures 13.5 x 4.3 cm unsure if this is [place] kidney or transplant kidney. Patient is a poor historian. Urinary bladder is mildly distended. MONIKA MARIO MD Aug 13, 2021 11:26
[2021-08-13 12:11] LABS: CALCIUM 8.1 mg/dL (8.5-10.1); CREATININE 3.8 mg/dL (0.7-1.3); GFR 21.6; POTASSIUM 3.7 mmol/L (3.5-5.1)
--- NOTE | 2021-08-13 12:17 | NUR ---
SW following. Discussed with Marcia (SS), chart reviewed. Pt from home, room air, COVID-19 positive. Pulmonology and Nephrology following. Pt not ready for discharge at this time. SW will continue to follow.
[2021-08-13] MEDS ORDERED: METO50TA6 PO (13:01)
[2021-08-13] MEDS ORDERED: AMLO-187 PO (13:01)
[2021-08-13] MEDS ORDERED: DOXY100C3 PO (13:01)
[2021-08-13] MEDS ORDERED: METH4TAB2 PO (13:01)
--- NOTE | 2021-08-13 14:10 | PDOC ---
[employer] PROGRESS NOTE Date of Service DOS: DATE: 08/13/21 TIME: 14:08 Chief Complaint Chief Complaint Hypertensive urgency History of renal transplant Severe noncompliance Incidental finding of Covid-19 (asymptomatic) Chronic renal failure Anemia History of Present Illness History of Present Illness his headache is gone, he feels well he feels at his baseline I asked about renal function, he reports prior renal transplant, but is not taking his meds, he does recall the medicine name Cellcept, no recent physician visit Vitals/I&O Vitals/I&O: Vital Signs Date Time Temp Pulse Resp B/P (MAP) Pulse Ox O2 Delivery O2 Flow Rate FiO2 08/13/21 11:00 98.0 78 16 159/101 (120) 96 Room Air 98.0 I & O 08/12/21 08/12/21 08/13/21 15:00 23:00 07:00 Intake Total 480 ml 420 ml 0 ml Output Total 280 ml 200 ml Balance 200 ml 220 ml 0 ml Physical Exam General: Alert, Oriented X3, No acute distress Heart: Regular rate, Normal S1, Normal S2 Lungs: Wheezing Abdomen: Normal bowel sounds Extremities: No clubbing Skin: No rashes, No breakdown Labs Labs: Laboratory Tests Test 08/13/21 10:30 Sodium Level 138 mmol/L (136-145) Potassium Level 3.7 mmol/L (3.5-5.1) Chloride Level 105 mmol/L (98-107) Carbon Dioxide Level 24 mmol/L (21-32) Anion Gap 9 (6-14) Blood Urea Nitrogen 32 mg/dL (8-26) Creatinine 3.8 mg/dL (0.7-1.3) Estimated GFR (Cockcroft-Gault) 21.6 Glucose Level 123 mg/dL (70-99) Calcium Level 8.1 mg/dL (8.5-10.1) Assessment and Plan Assessmemt and Plan Problems Medical Problems: (1) Hypertensive emergency Status: Acute Hypertensive urgency History of renal transplant Severe noncompliance Incidental finding of Covid-19 (asymptomatic) Chronic renal failure Anemia Plan He really wants to go home His creatinine is trending up Discussed with RN Will await further nephrology input Home meds DVT prophylaxis Full code Suspect he might leave AMA? Comment Review of Relevant I have reviewed the following items maddi (where applicable) has been applied. Medications: Current Medications Medications (Trade) Dose Ordered Sig/Carol Route PRN Reason Start Time Stop Time Status Last Admin Dose Admin Ascorbic Acid (Vitamin C) 500 mg DAILY PO 08/13/21 09:00 08/13/21 08:37 Amlodipine Besylate (Norvasc) 10 mg DAILY PO 08/13/21 09:00 08/13/21 08:36 Metoprolol Tartrate (Lopressor) 50 mg BID PO 08/12/21 21:00 08/13/21 08:36 Hydralazine HCl (Apresoline Inj) 10 mg PRN Q4HRS PRN IVP ELEVATED BP, SEE COMMENTS 08/12/21 17:15 08/12/21 17:32 Justifications for Admission Other Justification Hypertensive urgency MADDISON SANCHEZ III DO Aug 13, 2021 14:10
[2021-08-13 14:44] VITALS: BP 183/89
[2021-08-13] MEDS: hydrALAZINE 20 MG/ML VIAL. IVP PRN (16:13)
--- NOTE | 2021-08-13 16:41 | DS ---
DATE OF DISCHARGE: 08/13/2021 ADMITTING DIAGNOSIS: Hypertensive urgency. DISCHARGE DIAGNOSES: 1. Resolving hypertensive urgency. 2. Incidental finding of COVID positive. 3. Chronic anemia. 4. Chronic renal insufficiency. HOSPITAL COURSE: The patient is a pleasant middle-aged male who is probably noncompliant. He presented with hypertensive urgency, had a creatinine of 2.9. He was admitted. We got his blood pressure under control. Interestingly, his COVID testing came back positive. Today, I saw and examined him. He is at his baseline and wants to go home. I discussed the case with Pulmonary Medicine. Clinically, the patient is doing so well, we really do need to do not much with his COVID. We will go ahead and discharge with close outpatient followup. DISPOSITION: Home. ACTIVITY: As tolerated. DIET: Low sodium. MEDICATIONS: 1. Medrol Dosepak. 2. Doxycycline 100 p.o. b.i.d. 3. Amlodipine 10 a day. 4. Metoprolol 50 b.i.d. TOTAL TIME: [address]: MATEUS/savannah TID: [id number]
[2021-08-13 19:55] VITALS: BP 167/101
[2021-08-13 23:45] VITALS: BP 163/106
[2021-08-14 03:50] VITALS: BP 177/103
[2021-08-14] MEDS: HEPARIN for SUB-Q USE 5,000 UNIT/ML VIAL. SQ SCH ×2 (06:00→14:00)
--- NOTE | 2021-08-14 06:37 | NUR ---
Held 0600 Heparin until pt has been evaluated by renal to see if he may need a procedure this a.m. Call light within reach. Will monitor.
[2021-08-14 07:00] VITALS: BP 167/106
[2021-08-14] MEDS: ZINC SULFATE 220 MG CAPSULE. PO SCH (09:00)
[2021-08-14] MEDS: ASCORBIC ACID 500 MG TABLET PO SCH (09:00)
[2021-08-14] MEDS: SENNOSIDES/DOCUSATE 8.6/50MG TABLET. PO SCH (09:00)
[2021-08-14] MEDS: CHOLECALCIFEROL (VITAMIN D3) 1,000 UNIT TABLET PO SCH (09:00)
--- NOTE | 2021-08-14 09:53 | PDOC ---
DATE OF SERVICE DATE: 08/14/21 TIME: 09:50 SUBJECTIVE ROS No complaints OBJECTIVE Vital Signs Vital Signs Date Time Temp Pulse Resp B/P (MAP) Pulse Ox O2 Delivery O2 Flow Rate FiO2 08/14/21 07:00 98.5 77 16 167/106 (126) 96 Room Air 98.5 I & 0 Intake and Output 08/14/21 07:00 Intake Total 2150 ml Output Total 2000 ml Balance 150 ml Intake Oral 2150 ml Output Urine Total 2000 ml # Voids 3 PHYSICAL EXAM Physical Exam GEN.: No apparent distress. Alert and oriented. HEENT: Head is normocephalic, atraumatic, OM moist NECK: Supple. LUNGS: Clear to auscultation. HEART: RRR, S1, S2 present. ABDOMEN: Soft, nontender. Positive bowel sounds. No Transplant tenderness EXTREMITIES: Without any cyanosis.No edema NEUROLOGIC: Normal speech, normal tone,Grossly normal PSYCHIATRIC: Normal affect, normal mood. SKIN: No rash No Flank or CVA tenderness, No Nelson DIAGNOSIS/ASSESSMENT Assessment & Plan LIBBY - history of Renal Tx - have not been taking Immunosuppressive - quit 13 years back, dosent follow with PCP or Nephrology . Worsening renal function, since presenttaion to the hosp; Labs this morning- Cr stable , Non Oliguric, Good UOP Renal US left kidney 13.5 x 4.3 cm unsure if this is [place] kidney or transplant kidney. Check UA . E-lytes stable, Clinically stable. Monitor labs, strict I/O, avoid nephrotoxins, supportive care Hx of Renal Transplant- donor at the age of 25 years. 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 He quit taking immunosuppressives and havent seen a provider since 12-13 years CKD - Baseline unknown presented with Creat cw CKD stage 4 with Progression now Hypertensive urgency- Primary managing , clinically appears euvolemic COVID-19 positive status asymptomatic Patient doesnt have PCP. Discussed with patient and RN at great length regarding FU. Will need FU BMP in 5-7 days- with either PCP or may hv to come to ER/ FU with Hospitalist We will schedule him in our Office FERNANDO - next available appt COMMENT/RELEVANT DATA Meds Current Medications Medications (Trade) Dose Ordered Sig/Carol Start Time Stop Time Status Last Admin Dose Admin Acetaminophen (Tylenol) 650 mg PRN Q6HRS PRN 08/11/21 19:45 Acetaminophen/ Hydrocodone Bitart (Lortab 5/325) 1 tab PRN Q4HRS PRN 08/11/21 19:45 08/12/21 18:33 1 TAB Al Hydroxide/Mg Hydroxide (Mylanta Plus Xs) 30 ml PRN Q3HRS PRN 08/11/21 19:45 Amlodipine Besylate (Norvasc) 10 mg DAILY 08/13/21 09:00 08/13/21 08:36 10 MG Ascorbic Acid (Vitamin C) 500 mg DAILY 08/13/21 09:00 08/13/21 08:37 500 MG Bisacodyl (Dulcolax Supp) 10 mg PRN DAILY PRN 08/11/21 19:45 Calcium Carbonate/ Glycine (Tums) 500 mg PRN Q3HRS PRN 08/11/21 19:45 Diphenhydramine HCl (Benadryl) 50 mg 1X ONCE 08/11/21 18:15 08/11/21 18:21 DC 08/11/21 19:06 50 MG Enoxaparin Sodium (Lovenox Per Pharmacy Prophylaxis Dosing) 1 each PRN DAILY PRN 08/12/21 13:00 UNV Famotidine (Pepcid) 20 mg DAILY 08/12/21 09:00 08/13/21 08:36 20 MG Heparin Sodium (Porcine) (Heparin Sodium) 5,000 unit Q8HRS 08/11/21 20:00 08/13/21 22:26 5,000 UNIT Hydralazine HCl (Apresoline Inj) 10 mg PRN Q4HRS PRN 08/12/21 17:15 08/13/21 16:13 10 MG Ketorolac Tromethamine (Toradol 15mg Vial) 15 mg 1X ONCE 08/11/21 18:15 08/11/21 18:21 DC 08/11/21 19:07 15 MG Labetalol HCl (Normodyne Iv Push) 20 mg 1X ONCE 08/11/21 18:30 08/11/21 18:31 DC Lactulose (Lactulose) 20 gm PRN Q12HR PRN 08/11/21 19:45 Magnesium Hydroxide (Milk Of Magnesia) 2,400 mg PRN Q12HR PRN 08/11/21 19:45 Metoprolol Tartrate (Lopressor) 50 mg BID 08/12/21 21:00 08/13/21 22:24 50 MG Morphine Sulfate (Morphine Sulfate) 2 mg PRN Q1HR PRN 08/11/21 19:45 Nicardipine HCl 50 mg/Sodium Chloride 250 ml @ 25 mls/hr CONT PRN 08/11/21 19:45 08/12/21 12:50 DC Ondansetron HCl (Zofran) 4 mg PRN Q6HRS PRN 08/11/21 19:45 Oxycodone HCl (Roxicodone) 5 mg PRN Q3HRS PRN 08/11/21 19:45 08/12/21 22:20 5 MG Prochlorperazine Edisylate (Compazine) 10 mg 1X ONCE 08/11/21 19:00 08/11/21 19:06 DC 08/11/21 19:10 10 MG Senna/Docusate Sodium (Senna Plus) 1 tab BID 08/11/21 21:00 08/13/21 08:35 1 TAB Vitamin D (Vitamin D3) 2,000 unit DAILY 08/12/21 09:00 08/13/21 08:34 2,000 UNIT Zinc Sulfate (Orazinc) 220 mg DAILY 08/12/21 09:00 08/13/21 08:35 220 MG Zolpidem Tartrate (Ambien) 5 mg PRN QHS PRN 08/11/21 19:45 Lab Laboratory Tests Test 08/13/21 10:30 Sodium Level 138 mmol/L (136-145) Potassium Level 3.7 mmol/L (3.5-5.1) Chloride Level 105 mmol/L (98-107) Carbon Dioxide Level 24 mmol/L (21-32) Anion Gap 9 (6-14) Blood Urea Nitrogen 32 mg/dL (8-26) Creatinine 3.8 mg/dL (0.7-1.3) Estimated GFR (Cockcroft-Gault) 21.6 Glucose Level 123 mg/dL (70-99) Calcium Level 8.1 mg/dL (8.5-10.1) Results All relevant outside records, renal labs, imaging studies, telemetry/EKG's were reviewed. Justicifation of Admission Dx: Justifications for Admission: Justification of Admission Dx: N/A MONIKA MARIO MD Aug 14, 2021 09:53
[2021-08-14] MEDS: METOPROLOL TART IMMED RELEASE 50 MG TABLET. PO SCH (10:13)
[2021-08-14] MEDS: FAMOTIDINE 20 MG TABLET. PO SCH (10:13)
[2021-08-14 10:34] LABS: CALCIUM 8.1 mg/dL (8.5-10.1); CREATININE 3.7 mg/dL (0.7-1.3); GFR 22.2; POTASSIUM 3.9 mmol/L (3.5-5.1)
[2021-08-14 11:00] VITALS: BP 173/116
--- NOTE | 2021-08-14 13:42 | NUR ---
SS following for discharge planning. SS reviewed pt chart and discussed with pt RN. Pt is from home and is currently on room air. COVID19 positive. Nephrology following. Self pay. Med Assist following. SS will continue to follow for discharge planning.
--- NOTE | 2021-08-14 14:05 | DS ---
DATE OF DISCHARGE: 08/14/2021 ADMITTING DIAGNOSES: 1. Hypertensive urgency. 2. Incidental finding of COVID-19. 3. History of renal transplant with acute on chronic kidney failure. DISCHARGE DIAGNOSES: 1. Resolving hypertensive urgency. 2. COVID-19 (he is asymptomatic; this was an incidental finding). 3. Acute renal failure and chronic kidney disease (his creatinine today is down from 3.8-3.7. I discussed the case with Nephrology. The plan was to have him up closely with his labs next week. HOSPITAL COURSE: The patient is a pleasant 41-year-old male who presented with hypertensive urgency. He had renal transplant twice in the past. He apparently is severely noncompliant, does not take any medications for the past 14 years. His creatinine when he arrived, it was 2, then went up to 3.8, today is down to 3.7. We did go ahead and give him antihypertensives and his pressures are doing better today when I saw him. On exam, he is doing well. I discussed the case with advertising copywriter and his nurse and case management. Plan is to discharge and have him up closely next week to repeat his labs. He promises he will come in to get his labs checked and follow up with Dr. Kasper. DISPOSITION: Home. ACTIVITY: As tolerated. DIET: Renal. MEDICATIONS: Z-Amor, Medrol Dosepak and antihypertensives per Dr. Kasper. TOTAL TIME: Thirty-one minutes. MATEUS/GEORGE DR: MATEUS/savannah TID: [id number]
--- NOTE | 2021-08-14 15:11 | DS ---
DATE OF DISCHARGE: 08/14/2021 ADMITTING DIAGNOSES: 1. Hypertensive urgency. 2. Incidental finding of COVID-19. 3. History of renal transplant with acute on chronic kidney failure. DISCHARGE DIAGNOSES: 1. Resolving hypertensive urgency. 2. COVID-19 (he is asymptomatic; this was an incidental finding). 3. Acute renal failure and chronic kidney disease (his creatinine today is down from 3.8-3.7. I discussed the case with Nephrology. The plan was to have him up closely with his labs next week. HOSPITAL COURSE: The patient is a pleasant 41-year-old male who presented with hypertensive urgency. He had renal transplant twice in the past. He apparently is severely noncompliant, does not take any medications for the past 14 years. His creatinine when he arrived, it was 2, then went up to 3.8, today is down to 3.7. We did go ahead and give him antihypertensives and his pressures are doing better today when I saw him. On exam, he is doing well. I discussed the case with environmental engineering intern and his nurse and case management. Plan is to discharge and have him up closely next week to repeat his labs. He promises he will come in to get his labs checked and follow up with Dr. Kasper. DISPOSITION: Home. ACTIVITY: As tolerated. DIET: Renal. MEDICATIONS: Z-Amor, Medrol Dosepak and antihypertensives per Dr. Kasper. TOTAL TIME: Thirty-one minutes. ADDENDUM MEDICATIONS: Amlodipine 10 a day, doxycycline 100 p.o. b.i.d., prednisone taper with Medrol Dosepak, metoprolol 50 p.o. b.i.d. MATEUS/GEORGE DR: MATEUS/savannah TID: [id number]
[2021-08-14 15:41] VITALS: BP 169/103
[2021-08-14 15:59] LABS: BILIRUBIN,URINE NEGATIVE (NEG); CLARITY,URINE CLEAR; COLOR,URINE YELLOW; NITRITE,URINE NEGATIVE (NEG); PROTEIN,URINE 100 mg/dL (NEG-TRACE); UROBILINOGEN,URINE 0.2 mg/dL (0.2 mg/dL)
[2021-08-14 16:16] LABS: RBC,URINE 0 /HPF (0-2)
[2021-08-14 16:17] LABS: BACTERIA,URINE 0 /HPF (0-FEW); HYALINE CASTS, URINE OCCASIONAL /HPF; WBC,URINE OCC /HPF (0-4)
--- NOTE | 2021-08-14 16:33 | NUR ---
Discharge Note: [facility] BOWLING [address] [place] [address] Discharge instructions and discharge home medications reviewed with Patient and a copy given. All questions have been answered and understanding verbalized. The following instructions and handouts were given: Diet, activity, medication list and follow up instructions provided to patient. Discontinued lines and drains: Peripheral IV discontinued and catheter intact. Patient discharged to Home or Self Care with Self via Ambulated
== END 2021-08-14 16:25 | disposition home or self-care (01) | DRG 304 ==
LOC: ER 16:13 → 6 SOUTH 19:43
PROVIDERS: ADMIT Internal Medicine; ATTEND Internal Medicine
DX: I16.1 Hypertensive emergency (principal); U07.1 COVID-19; N17.9 Acute kidney failure, unspecified; D50.9 Iron deficiency anemia, unspecified; I12.9 Hypertensive chronic kidney disease with stage 1 through stage 4 chronic kidney disease, or unspecified chronic kidney disease; N18.9 Chronic kidney disease, unspecified; Z91.19 Patient's noncompliance with other medical treatment and regimen; Z88.8 Allergy status to other drugs, medicaments and biological substances
CPT/HCPCS: 36415; 70450; 71045; 76770; 80048; 80053; 81001; 83735; 83880; 84100; 84484; 85025; 87426; 93005; 96374; 96375; 96376; J0360; J0780; J1200; J1644; J1885; J2405; 99285-25; G0378